=== PATIENT | male | born 1970 ===

== ENCOUNTER → 2022-12-14 | Outpatient (CLI) | payer OTHER ==
[2022-12-19 08:01] LABS: Stool Occult Bld Immuno 1 Negative (NEGATIVE)
== END ==
LOC: LAB SHORT 12:15 → LAB 12:15 → LAB SHORT 12-18 12:15
PROVIDERS: Registered Nurse
DX: Z12.11 Encounter for screening for malignant neoplasm of colon (principal)
CPT/HCPCS: G0328